=== PATIENT | male | born 1955 | race Asian ===

== ENCOUNTER 2019-03-12 07:59 | Day surgery (SDC) | payer OTHER ==
[2019-03-11 12:04] VITALS: BMI 29.7
[2019-03-12 08:20] VITALS: TEMP 98
[2019-03-12 08:25] LABS: EOS % 4.6 % (0-4.5); HEMATOCRIT 41.6 % (35.4-49); HEMOGLOBIN 12.8 GM/dL (11.7-16.9); MCH 19.6 pg (25.7-33.7); MCHC 30.8 g/dl (32.0-35.9); MEAN CELL VOLUME 63.7 fl (80-96); MEAN PLT VOLUME 10.5 fl (7.5-11.1); MONO % 9.8 % (3.8-10.2); NEUT % 42.6 % (42.8-82.8); PLATELET COUNT 179 K/MM3 (134-434); RBC 6.52 M/mm3 (4.00-5.60); RDW 17.3 % (11.9-15.9); WHITE BLOOD COUNT 9.4 K/mm3 (4.0-10.0)
[2019-03-12 08:36] LABS: INR 0.88 (0.83-1.09); PROTHROMBIN TIME (PATIENT) 10.4 SEC (9.7-13.0)
[2019-03-12 10:04] LABS: ANISOCYTOSIS 1+; MACROCYTOSIS 0; PLATELET ESTIMATE NORMAL; TARGET CELLS 1+
[2019-03-12 10:12] LABS: OVALOCYTE 1+
[2019-03-12 14:52] VITALS: BP 121/65; PULSE 73
== END 2019-03-12 15:15 | disposition home or self-care (01) ==
LOC: JRADIR 07:59
PROVIDERS: ATTEND Internal Medicine Nephrology
PROC: 0TB13ZX Excision of Left Kidney, Percutaneous Approach, Diagnostic (ICD-10-PCS; principal; 2019-03-12)
DX: E13.29 Other specified diabetes mellitus with other diabetic kidney complication (principal); R80.8 Other proteinuria; Z79.4 Long term (current) use of insulin; Z79.84 Long term (current) use of oral hypoglycemic drugs; I10 Essential (primary) hypertension
CPT/HCPCS: 36415; 50200; 76942-TC; 85025; 85610